=== PATIENT | female | born 1950 | race Caucasian/White ===

== ENCOUNTER 2016-12-01 09:19 | Day surgery (SDC) | payer MEDICARE, OTHER ==
[2016-12-01] MEDS ORDERED: PHENYLEPHRINE 2.5% OPHTH 2 ML DROPS ONE (09:28)
[2016-12-01] MEDS ORDERED: PHENYLEPHRINE 2.5% OPHTH 2 ML DROPS OPTH ONE (10:00)
[2016-12-01] MEDS ORDERED: CYCLOPENTOLATE 1% OPHTH DROPS 2 ML OPTH ONE (10:00)
[2016-12-01] MEDS ORDERED: PROPARACAINE 0.5% OPHTH DROPS 15 ML OPTH ONE ×2 (10:00→11:21)
[2016-12-01] MEDS ORDERED: KETOROLAC 0.45% OPHTH DROPS OPTH ONE (10:00)
[2016-12-01] MEDS ORDERED: LACTATED RINGERS 500 ML IV ONE (10:10)
[2016-12-01] MEDS ORDERED: MIDAZOLAM 2 MG/2 ML VIAL IVP ONE (11:25)
[2016-12-01] MEDS ORDERED: ONDANSETRON 4 MG/2 ML VIAL IVP ONE (11:25)
[2016-12-01] MEDS ORDERED: fentaNYL 100 MCG/2 ML VIAL IVP ONE (11:25)
[2016-12-01] MEDS ORDERED: BRIMONIDINE 0.2% OPHTH DROPS 5 ML OPTH ONE (11:41)
[2016-12-01] MEDS ORDERED: EPINEPHrine 1 MG/ML AMP IVP ONE (11:41)
[2016-12-01] MEDS ORDERED: CHONDR SULF/HYALURONATE SYRINGE IO ONE (11:42)
[2016-12-01] MEDS ORDERED: TRIAMCIN/MOXIFLOX/VANCO 1 ML VIAL IO ONE (11:42)
[2016-12-01] MEDS ORDERED: BSS/LIDOCAINE/EPINEPHRINE 1 ML SYRINGE IO ONE (11:42)
== END 2016-12-01 09:20 | disposition home or self-care (01) ==
PROC: 08RJ3JZ Replacement of Right Lens with Synthetic Substitute, Percutaneous Approach (ICD-10-PCS; principal; 2016-12-01 10:45)
DX: H25.11 Age-related nuclear cataract, right eye (principal); Z86.73 Personal history of transient ischemic attack (TIA), and cerebral infarction without residual deficits; F17.210 Nicotine dependence, cigarettes, uncomplicated
CPT/HCPCS: 66984; A9270; V2632; V2788

== ENCOUNTER 2017-01-05 10:35 | Day surgery (SDC) | payer MEDICARE, OTHER ==
[~2017-01-05 10:35] MED LIST: PHENYLEPHRINE 2.5% OPHTH 2 ML DROPS ONE
[2017-01-05] MEDS ORDERED: KETOROLAC 0.45% OPHTH DROPS OPTH ONE (11:00)
[2017-01-05] MEDS ORDERED: CYCLOPENTOLATE 1% OPHTH DROPS 2 ML OPTH ONE (11:00)
[2017-01-05] MEDS ORDERED: PROPARACAINE 0.5% OPHTH DROPS 15 ML OPTH ONE ×2 (11:00→11:58)
[2017-01-05] MEDS ORDERED: PHENYLEPHRINE 2.5% OPHTH 2 ML DROPS OPTH ONE (11:00)
[2017-01-05] MEDS ORDERED: LACTATED RINGERS 500 ML IV ONE (11:16)
[2017-01-05] MEDS ORDERED: TIMOLOL 0.5% OPHTH DROPS OPTH ONE (11:58)
[2017-01-05] MEDS ORDERED: CHONDR SULF/HYALURONATE SYRINGE IO ONE (11:58)
[2017-01-05] MEDS ORDERED: EPINEPHrine 1 MG/ML AMP IVP ONE (11:58)
[2017-01-05] MEDS ORDERED: BSS/LIDOCAINE/EPINEPHRINE 1 ML SYRINGE IO ONE ×2 (11:58)
[2017-01-05] MEDS ORDERED: BRIMONIDINE 0.2% OPHTH DROPS 5 ML OPTH ONE (11:58)
[2017-01-05] MEDS ORDERED: TRIAMCIN/MOXIFLOX/VANCO 1 ML VIAL IO ONE ×2 (11:58)
[2017-01-05] MEDS ORDERED: PROPOFOL 200 MG/20 ML VIAL IVP ONE (12:10)
[2017-01-05] MEDS ORDERED: LIDOCAINE-MPF 2% 5 ML VIAL IM ONE (12:10)
[2017-01-05] MEDS ORDERED: MIDAZOLAM 2 MG/2 ML VIAL IVP ONE (12:10)
[2017-01-05 12:51] VITALS: BP 110/68
--- NOTE | 2017-01-05 14:14 | OPERATIVE REPORT ---
DATE OF SURGERY: 01/05/2017 00:00:00 PREOPERATIVE DIAGNOSIS: Visually significant cataract, right eye. Cataract surgery was performed on t he left eye on 12/01/2016. POSTOPERATIVE DIAGNOSIS: Visually significant cataract, right eye. Cataract surgery was performed on the left eye on 12/01/2016. NAME OF PROCEDURE: Phacoemulsification posterior chamber intraocular lens implant, right eye and with laser assist. SURGEON: Gurpreet Mcginnis MD. ANESTHESIA: Monitored anesthesia care. COMPLICATIONS: None. OPERATIVE INDICATIONS: This is a 66-year-old woman with progressive vision loss in the right eye due to 2-3+ nuclear sclerotic cataract. Best corrected visual acuity was 20/30 with glare to 20/150 in th e right eye. INDICATIONS FOR SURGERY: Overall decrease in vision, difficulty seeing words on a computer screen, di fficulty reading, difficulty seeing words and closed captions on TV, difficulty seeing street signs, difficulty driving in low light or at night, difficulty driving at night because of head lights from other vehicles, and difficulty with glare or bright lights in any situation. She was consented at [facility] concerning the risks and benefits of cataract surgery, after which she expressed a desire to proc eed with surgery. OPERATIVE PROCEDURE: The patient was taken into OR #2 and placed under monitored anesthesia care. A s urgical time-out was conducted confirming the correct patient, correct procedure and correct surgical site. She was placed under the LenSx laser and her eye docked to the laser interface. The laser perf ormed the capsulotomy, lens softening, phaco wounds, and arcuate keratotomy incisions for residual st igmatism after toric lens. She was then moved to the operating microscope, given topical anesthesia, and then prepped and draped in the usual sterile fashion. The eye was entered at the 12 and 9 o'clock positions. Intracameral Shugarcaine was injected into the anterior chamber, followed by Viscoat. Cap sulorrhexis flap created by the LenSx laser was removed from the anterior chamber. The nucleus was hy drodissected and phacoemulsified. The cortex was evacuated using automated infusion aspiration. Provi sc was injected into the capsular bag and a 26.5 diopter intraocular lens was inserted into the bag. This is Symfony multifocal lens and also toric [id number]. Approximately 0.5 ml of a mixture of triamcino lone, moxifloxacin, and vancomycin was injected subconjunctivally in the superior for infection and i nflammation prophylaxis. The lens was rotated into the proper position, being 103 degrees using the t oric max on the lens and centering on the arcuate incisions that had already been placed. I/A was u sed to evacuate the viscoelastic materials. The second repositioning of the lens had to occur, so mor e Provisc was injected, lens aligned, and then additional I/A to remove the viscoelastic materials. T he eye was inflated to physiologic pressure using balanced salt solution and found to be watertight. The positioning of the lens was checked one more time and the surgery ended. The patient was taken fr om the operating room in good condition, given postoperative instructions. JOB #: [id number] EXT JOB #:[id number]
== END 2017-01-05 10:36 | disposition home or self-care (01) ==
LOC: SDS 10:35
PROVIDERS: ATTEND Ophthalmology
PROC: 08RJ3JZ Replacement of Right Lens with Synthetic Substitute, Percutaneous Approach (ICD-10-PCS; principal; 2017-01-05 12:00)
DX: H25.11 Age-related nuclear cataract, right eye (principal); F17.200 Nicotine dependence, unspecified, uncomplicated
CPT/HCPCS: 66984; A9270; V2632; V2788

== ENCOUNTER 2018-03-26 11:42 | Outpatient (CLI) | payer MEDICARE, OTHER ==
--- NOTE | 2018-04-05 08:52 | Mammography Report ---
Procedure Date: 03/26/2018 Accession Number: [id number] / [id number] Procedure: MGN - Screening Mammo Dig Bilat CPT Code: FULL RESULT: EXAM: Screening Mammo Dig Bilat DATE: 03/26/2018 12:20 PM CLINICAL HISTORY: Routine screening TECHNIQUE: Bilateral CC and MLO views were obtained. COMPARISON: 01/25/2016, 01/10/2015 and 12/14/2013 FINDINGS: There are scattered fibroglandular densities. There is no significant interval change. No suspicious masses, clustered microcalcifications, or regions of architectural distortion are identified. IMPRESSION: Negative examination RECOMMENDATION: Routine annual screening unless otherwise clinically indicated. BIRADS CATEGORY 1: Negative STANDARD QUALIFYING STATEMENTS: 1. This examination was reviewed with the aid of Computer-Aided Detection (CAD). 2. A negative or benign imaging report should not delay biopsy if clinically suspicious findings are present. Consider surgical consultation if warrented. More than 5% of cancers are not identified by imaging. 3. Dense breasts may obscure an underlying neoplasm.
== END 2018-03-26 11:43 | disposition home or self-care (01) ==
LOC: DI.N 11:42
PROVIDERS: ATTEND Obstetrics & Gynecology Obstetrics
DX: Z12.31 Encounter for screening mammogram for malignant neoplasm of breast (principal)
CPT/HCPCS: 77067

== ENCOUNTER 2018-03-26 11:43 | Outpatient (CLI) | payer MEDICARE, OTHER ==
--- NOTE | 2018-03-26 15:13 | XRAY Report ---
Procedure Date: 03/26/2018 Accession Number: [id number] / [id number] Procedure: XRN - Chest 2 View X-Ray CPT Code: 31152 FULL RESULT: EXAM: CHEST RADIOGRAPHY EXAM DATE: 03/26/2018 12:18 PM. CLINICAL HISTORY: SMOKER, WHEEZING. COMPARISON: None. TECHNIQUE: 2 views. FINDINGS: Lungs/Pleura: No focal opacities evident. No pleural effusion. No pneumothorax. Normal volumes. Mediastinum: Heart and mediastinal contours are unremarkable. Other: None. IMPRESSION: No acute intrathoracic plain film abnormality. RADIA
== END 2018-03-26 11:44 | disposition home or self-care (01) ==
LOC: DI.N 11:43
PROVIDERS: ATTEND Obstetrics & Gynecology Obstetrics
DX: F17.200 Nicotine dependence, unspecified, uncomplicated (principal); R06.2 Wheezing
CPT/HCPCS: 71046

== ENCOUNTER 2018-07-27 14:56 | Outpatient (CLI) | payer MEDICARE, OTHER ==
--- NOTE | 2018-07-30 19:02 | DEXA Report ---
Reason: POSTMENOPAUSAL Procedure Date: 07/27/2018 Accession Number: [id number] / [id number] Procedure: DEX - Dexa Spine and/or Hip CPT Code: FULL RESULT: EXAM: Dexa Spine and/or Hip DATE: 07/27/2018 4:08 PM CLINICAL HISTORY: POSTMENOPAUSAL TECHNIQUE: Dual energy x-ray absorptiometry (DXA) was performed on a [employer] System. Regions measured are the AP Spine, femoral neck, and if needed forearm. COMPARISON: None. In accordance with the International Society for Clinical Densitometry (ISCD) guidelines, data from previous exams may be reanalyzed using current recommendations and techniques. This is done to allow a more accurate basis for comparison with the current study. FINDINGS: The data for the lumbar spine is as follows: BMD (g/cm/cm) T-SCORE Z-SCORE REGION L1 0.932 -1.6 -0.3 L2 1.084 -1.0 0.4 L3 1.224 0.2 1.5 L4 1.218 0.1 1.5 TOTAL 1.126 -0.4 0.9 NOTE: All evaluable vertebrae are used for classification The data for the hip is as follows: BMD (g/cm/cm) T-SCORE Z-SCORE REGION Neck 0.796 -1.7 -0.3 TOTAL 0.887 -1.0 0.2 NOTE: The femoral neck or total proximal femur, whichever is lowest, is used for classification. IMPRESSION: THE WHO CLASSIFICATION BASED ON THE INTERNATIONAL REFERENCE STANDARD IS OSTEOPENIA. THE FRACTURE RISK IS INCREASED. RECOMMENDATION: Patients with diagnosis of osteoporosis or osteopenia should have regular bone mineral density assessment. For those eligible for Medicare, routine testing is allowed once every 2 years. Testing frequency can be increased for patients who have rapidly progressing disease or for those who are receiving medical therapy to restore bone mass. COMMENT: World Health Organization (WHO) definitions for osteoporosis and osteopenia: NORMAL BMD: T-score at -1.0 or higher, fracture risk is low OSTEOPENIA BMD: T-score between -1.0 and -2.5, fracture risk is increased. OSTEOPOROSIS BMD: T-score at -2.5 or lower, fracture risk is high. National Osteoporosis Foundation recommends: 1. Obtain adequate dietary calcium (at least 1200 mg per day) and vitamin D (400-800 international units per day). 2. Participate, as appropriate, in regular weightbearing and muscle-strengthening exercise. 3. Avoid tobacco use and reduce alcohol and caffeine intake. 4. For more detailed information see the website at www.NOF.org.
== END 2018-07-27 14:57 | disposition home or self-care (01) ==
LOC: DI 14:56
PROVIDERS: ATTEND Obstetrics & Gynecology Obstetrics
DX: Z13.820 Encounter for screening for osteoporosis (principal); M85.88 Other specified disorders of bone density and structure, other site; Z78.0 Asymptomatic menopausal state
CPT/HCPCS: 77080

== ENCOUNTER 2019-04-22 12:13 | Outpatient (CLI) | payer MEDICARE, OTHER ==
--- NOTE | 2019-04-23 11:18 | Mammography Report ---
Reason: ROUTINE MAMMOGRA Procedure Date: 04/22/2019 Accession Number: [id number] / [id number] Procedure: MGN - Screening Mammo Dig Bilat CPT Code: FULL RESULT: EXAM: Screening Mammo Dig Bilat DATE: 04/22/2019 12:41 PM CLINICAL HISTORY: Routine screening TECHNIQUE: (B) - Bilateral CC and MLO views were obtained. COMPARISON: 03/26/2018 PARENCHYMAL PATTERN: (A) - The breasts demonstrate scattered fibroglandular densities bilaterally. FINDINGS: No significant interval change. There are no suspicious masses, calcifications, or areas of distortion. IMPRESSION: Negative examination. BI-RADS category 1. RECOMMENDATION: (ANNUAL) - Recommend routine annual screening mammography. BI-RADS CATEGORY: (1) - Negative. STANDARD QUALIFYING STATEMENTS: 1. This examination was not reviewed with the aid of Computer-Aided Detection (CAD). 2. A negative or benign imaging report should not preclude biopsy if clinically suspicious findings are present. 3. Dense breasts may obscure an underlying neoplasm. 4. This examination was reviewed without the aid of 3D breast imaging (tomosynthesis).
== END 2019-04-22 12:14 | disposition home or self-care (01) ==
LOC: DI.N 12:13
DX: Z12.31 Encounter for screening mammogram for malignant neoplasm of breast (principal)
CPT/HCPCS: 77067

== ENCOUNTER 2020-10-21 12:48 | Outpatient (CLI) | payer MEDICARE, OTHER ==
--- NOTE | 2020-10-22 13:27 | Mammography Report ---
BILATERAL DIGITAL SCREENING MAMMOGRAM 3D/2D: 10/21/2020 CLINICAL: Routine screening. Comparison is made to exams dated: 04/22/2019 mammogram, [facility] 01/25/2016 mamm[facility], 01/10/2015 mammogram, and 12/14/2013 mammogram - /[facility]. Ther e are scattered fibroglandular elements in both breasts. No significant masses, calcifications, or other findings are seen in either breast. There has been no significant interval change. IMPRESSION: NEGATIVE There is no mammographic evidence of malignancy. A 1 year screening mammogram is recommended. This exam was interpreted at Station ID: [id number]. NOTE: For mammograms, a report in lay terms will be sent to the patient. Approximately 15% of breast malignancies will not be visualized mammographically. In the management of a palpable breast mass, a negative mammogram must not discourage biopsy of a clinically suspicious lesion. Electronically Signed By: Pierce Washington M.D. ddp/penrad:10/21/2020 13:51:40 ACR BI-RADS Category 1: Negative 3341F PARENCHYMAL PATTERN: (A) - The breast(s) demonstrate(s) scattered fibroglandular densities. BI-RADS CATEGORY: (1) - 1 RECOMMENDATION: (ANNUAL) - Recommend routine annual screening mammography. [id number] 1 year screening LATERALITY: (B)
== END 2020-10-21 12:49 | disposition home or self-care (01) ==
LOC: DI.N 12:48
DX: Z12.31 Encounter for screening mammogram for malignant neoplasm of breast (principal)

== ENCOUNTER 2021-05-03 13:18 | Outpatient (CLI) | payer MEDICARE, OTHER ==
--- NOTE | 2021-05-03 14:47 | CT Report ---
PROCEDURE: Low Dose Lung Cancer Screen INDICATIONS: smoker TECHNIQUE: Noncontrast low-dose images were acquired from the pulmonary apices to the posterior costophrenic ang les. Multiplanar MIP reformats were then acquired. For radiation dose reduction, the following was u sed: automated exposure control, adjustment of mA and/or kV according to patient size. COMPARISON: None. FINDINGS: Image quality: Excellent. Lungs and pleura: 3 mm subpleural pulmonary nodule, right middle lobe, image 163/4. 6 mm pleural-bas ed pulmonary nodule, right lower lobe, image 173/4. 3 mm subpleural pulmonary nodule, posterior right lower lobe, image 197/4. Mediastinum: Heart size is normal. No pericardial effusion. Moderately severe coronary artery calc ifications. No mediastinal adenopathy by size criteria. Thoracic aorta and central pulmonary arterie s are normal in size. Esophagus is normal in caliber. No hiatal hernia. Bones and chest wall: No suspicious bony lesions. No vertebral body compression fractures. No axil virginie or supraclavicular adenopathy by size criteria. Thyroid is grossly unremarkable. Abdomen: Visualized upper abdomen solid organs and bowel loops appear normal in the absence of contr ast. IMPRESSION: 1. LungRads Category 3: Probably benign findings-short term follow up suggested; includes nodules wit h a low likelihood of becoming a clinically significant cancer: 6 mm pleural-based pulmonary nodule, right lower lobe. Patient also has 2 smaller pulmonary nodules, measuring 3 mm each, in the right zara g. 2. 6 month follow-up low-dose noncontrast CT of the chest is recommended for further evaluation. 3. Clinically significant or potentially clinically significant findings (nonlung cancer): Coronary a rtery disease. CLINICAL RECOMMENDATION STATEMENTS: In patients <35 years with an ITN detected on CT, MRI, or extrathyroidal ultrasound, the Committee re commends further evaluation with dedicated thyroid ultrasound if the nodule is ?1 cm and has no suspi cious imaging features, and if the patient has normal life expectancy. In patients ?35 years with an ITN detected on CT, MRI, or extrathyroidal ultrasound, the Committee re commends further evaluation with dedicated thyroid ultrasound if the nodule is ?1.5 cm and has no tamera picious imaging features, and if the patient has normal life expectancy. (ACR, 2014) Reviewed by: Raimundo Sparks MD on 05/03/2021 2:45 PM PDT Approved by: Raimundo Sparks MD on 05/03/2021 2:45 PM PDT Station ID: [id number]
== END 2021-05-03 13:19 | disposition home or self-care (01) ==
LOC: DI 13:18
PROVIDERS: ATTEND Obstetrics & Gynecology Obstetrics
DX: Z12.2 Encounter for screening for malignant neoplasm of respiratory organs (principal); F17.210 Nicotine dependence, cigarettes, uncomplicated; R91.8 Other nonspecific abnormal finding of lung field

== ENCOUNTER 2021-09-09 13:43 | Outpatient (CLI) | payer MEDICARE, OTHER ==
[2021-09-09 14:26] LABS: ALBUMIN 4.6 g/dL (3.2-5.5); ALBUMIN/GLOBULIN RATIO 1.5 (1.0-2.2); BILIRUBIN,TOTAL 0.8 mg/dL (0.2-1.0); CALCIUM 9.8 mg/dL (8.5-10.3); CREATININE 0.8 mg/dL (0.4-1.0); POTASSIUM 4.3 mmol/L (3.5-5.0); TOTAL PROTEIN 7.7 g/dL (6.7-8.2)
[2021-09-09 20:09] LABS: ESTIMATED AVERAGE GLUCOSE 123 mg/dL (70-100); HEMOGLOBIN A1c% 5.9 % (4.27-6.07)
== END 2021-09-09 13:44 | disposition home or self-care (01) ==
LOC: LAB 13:43
PROVIDERS: ATTEND Obstetrics & Gynecology Obstetrics
DX: E78.5 Hyperlipidemia, unspecified (principal); R73.03 Prediabetes
CPT/HCPCS: 36415; 80053; 81599; 83036

== ENCOUNTER 2022-05-24 10:19 | Outpatient (CLI) | payer MEDICARE, OTHER ==
--- NOTE | 2022-05-25 09:08 | Mammography Report ---
BILATERAL DIGITAL SCREENING MAMMOGRAM 3D/2D: 05/24/2022 CLINICAL: Routine screening. Comparison is made to exams dated: 10/21/2020 mammogram, 04/22/2019 mammogram, 03/26/2018 mammogram - [facility], and 01/25/2016 mammogram - /[facility]. There are scattered areas of fibroglandular density in both breasts (category b / 25%-50% glandular t issue). No significant masses, calcifications, or other findings are seen in either breast. There has been no significant interval change. IMPRESSION: NEGATIVE There is no mammographic evidence of malignancy. A 1 year screening mammogram is recommended. Based on the Tyrer Cuzick model (a risk assessment model) the patients lifetime risk is 2.8% and her 10 year risk is 2.3%. According to the ACR, ACS, and NCCN guidelines, an annual breast MRI exam marlen g with mammogram is recommended if the patients lifetime risk is 20% or greater. This exam was interpreted at Station ID: [id number]. NOTE: For mammograms, a report in lay terms will be sent to the patient. Approximately 15% of breast malignancies will not be visualized mammographically. In the management of a palpable breast mass, a negative mammogram must not discourage biopsy of a clinically suspicious lesion. Electronically Signed By: Hudson polanco/richa:05/24/2022 17:13:50 ACR BI-RADS Category 1: Negative 3341F PARENCHYMAL PATTERN: (A) - The breast(s) demonstrate(s) scattered fibroglandular densities. BI-RADS CATEGORY: (1) - 1 RECOMMENDATION: (ANNUAL) - Recommend routine annual screening mammography. [id number] 1 year screening LATERALITY: (B)
== END 2022-05-24 10:20 | disposition home or self-care (01) ==
LOC: DI.N 10:19
PROVIDERS: ATTEND Obstetrics & Gynecology Obstetrics
DX: Z12.31 Encounter for screening mammogram for malignant neoplasm of breast (principal)

== ENCOUNTER 2022-05-31 07:31 | Outpatient (CLI) | payer MEDICARE, OTHER ==
--- NOTE | 2022-05-31 10:53 | MRI Report ---
PROCEDURE: BRAIN WO INDICATIONS: BALANCE PROBLEMS, MEMORY PROBLEM TECHNIQUE: Noncontrast axial T1 spin echo, axial T2 fast spin echo, sagittal and axial FLAIR, coronal T2 fast sp in echo, axial gradient echo, axial diffusion and ADC through the brain. COMPARISON: None. FINDINGS: Image quality: Excellent. The ventricular system and cortical sulci demonstrate atrophy, consistent for patient's stated age. There are areas of hyperintense T2/FLAIR signal in the periventricular and subcortical white matter. There is no acute intra or extra-axial fluid collection. No acute hemorrhage, mass lesion or midlin e shift. There is a focus of hypointense signal on gradient sequence within the left temporal pariet al lobe. There is no visualized associated signal abnormality on other sequences. Brainstem is unrema rkable. There are no areas of restricted diffusion. Globes are symmetrical. Sinuses demonstrate mil d to moderate pansinus disease. Minimal scattered mastoid air cell fluid. IMPRESSION: 1. No acute intracranial process. 2. Moderate atrophy and chronic microvascular ischemic changes.. 3. Focus of hypointensity on gradient sequence as described above. This could represent an area of c alcification which is not well seen on other sequences or perhaps cavernous angioma. No priors are av ailable for comparison. As clinically indicated, follow-up post contrast exam may be obtained. Reviewed by: Kimberly Negrete MD on 05/31/2022 10:51 AM PDT Approved by: Kimberly Negrete MD on 05/31/2022 10:51 AM PDT Station ID: [id number]
--- NOTE | 2022-05-31 15:24 | CT Report ---
PROCEDURE: Low Dose Lung Cancer Screen INDICATIONS: SMOKER TECHNIQUE: Noncontrast low-dose axial images were acquired from the pulmonary apices to the posterior costophren ic angles. Multiplanar MIP reformats were then reconstructed. For radiation dose reduction, the follo wing was used: automated exposure control, adjustment of mA and/or kV according to patient size. COMPARISON: 05/03/2021 FINDINGS: Image quality: Excellent. Lungs and pleura: Subpleural right middle lobe pulmonary nodule can measures 3 mm on image 4/181. Ri ght lower lobe pleural-based nodule again measures 6 mm on image 4/184. Additional subpleural 2 mm no dule has decreased in size in the posterior right lower lobe on image 4/197. No new nodules. Calcifie d left lower lobe granuloma on image 4/251 unchanged Mediastinum: Heart size is normal. Dense coronary artery vascular calcification No pericardial effus ion. No mediastinal adenopathy by size criteria. Thoracic aorta and central pulmonary arteries are normal in size. Esophagus is normal in caliber. No hiatal hernia. Bones and chest wall: No suspicious bony lesions. No vertebral body compression fractures. No axil virginie or supraclavicular adenopathy by size criteria. The thyroid is normal in size and there are no incidental findings. Abdomen: Visualized upper abdomen solid organs and bowel loops appear normal in the absence of contr ast. IMPRESSION: Stable benign-appearing pulmonary nodules Lung RADS category 2: Benign findings. Continue annual screening. Reviewed by: Aaron Driver MD on 05/31/2022 2:23 PM AKDT Approved by: Aaron Driver MD on 05/31/2022 2:23 PM AKDT Station ID: [id number]
== END 2022-05-31 07:32 | disposition home or self-care (01) ==
LOC: DI 07:31
PROVIDERS: ATTEND Obstetrics & Gynecology Obstetrics
DX: Z12.2 Encounter for screening for malignant neoplasm of respiratory organs (principal); R91.8 Other nonspecific abnormal finding of lung field; R42 Dizziness and giddiness; G31.9 Degenerative disease of nervous system, unspecified; I67.2 Cerebral atherosclerosis; R26.89 Other abnormalities of gait and mobility; R41.3 Other amnesia; F17.210 Nicotine dependence, cigarettes, uncomplicated

== ENCOUNTER 2023-06-01 15:20 | Outpatient (CLI) | payer MEDICARE, OTHER ==
--- NOTE | 2023-06-05 11:27 | Mammography Report ---
BILATERAL DIGITAL SCREENING MAMMOGRAM 3D/2D: 06/01/2023 CLINICAL: Routine screening. Comparison is made to exams dated: 05/24/2022 mammogram, 10/21/2020 mammogram, 04/22/2019 mammogram, mammogram - [facility], 01/25/2016 mammogram, and 01/10/2015 mammogram - [facility]. There are scattered areas of fibroglandular density in both breasts (category b / 25%-50% glandular t issue). There is a focal asymmetry in the right breast upper inner quadrant at anterior depth. No other significant masses, calcifications, or other findings are seen in either breast. IMPRESSION: INCOMPLETE: NEEDS ADDITIONAL IMAGING EVALUATION The focal asymmetry in the right breast is indeterminate. A diagnostic mammogram and ultrasound is r ecommended. Based on the Tyrer Cuzick model (a risk assessment model) the patients lifetime risk is 2.6% and her 10 year risk is 2.3%. According to the ACR, ACS, and NCCN guidelines, an annual breast MRI exam marlen g with mammogram is recommended if the patients lifetime risk is 20% or greater. This exam was interpreted at Station ID: [id number]. NOTE: For mammograms, a report in lay terms will be sent to the patient. Approximately 15% of breast malignancies will not be visualized mammographically. In the management of a palpable breast mass, a negative mammogram must not discourage biopsy of a clinically suspicious lesion. Electronically Signed By: Gabby Vaughn M.D. esb/:06/04/2023 17:58:30 ACR BI-RADS Category 0: Incomplete 3340F PARENCHYMAL PATTERN: (A) - The breast(s) demonstrate(s) scattered fibroglandular densities. BI-RADS CATEGORY: (0) - 0 Mammo and [place] [id number] Immediate follow-up LATERALITY: (B)
== END 2023-06-01 15:21 | disposition home or self-care (01) ==
LOC: DI.N 15:20
PROVIDERS: ATTEND Obstetrics & Gynecology Obstetrics
DX: Z12.31 Encounter for screening mammogram for malignant neoplasm of breast (principal); R92.8 Other abnormal and inconclusive findings on diagnostic imaging of breast; R92.323 Mammographic fibroglandular density, bilateral breasts

== ENCOUNTER 2023-06-13 10:51 | Outpatient (CLI) | payer MEDICARE, OTHER ==
--- NOTE | 2023-06-13 15:53 | Mammography Report ---
UNILATERAL RIGHT DIGITAL DIAGNOSTIC MAMMOGRAM 3D/2D: 06/13/2023 CLINICAL: Patient returns today to evaluate a focal asymmetry in the right breast. Comparison is made to exams dated: 06/01/2023 mammogram, 05/24/2022 mammogram, 10/21/2020 mammogram, 04/22/2019 mammogram, and 03/26/2018 mammogram - [facility]. There are scattered areas of fibroglandular density in the right breast (category b / 25%-50% glandul ar tissue). There is a stable focal asymmetry in the right breast central to the nipple anterior depth. This is seen in additional views. No other significant masses or calcifications are seen in the breast. IMPRESSION: INCOMPLETE: NEEDS ADDITIONAL IMAGING EVALUATION The stable focal asymmetry in the right breast is indeterminate. An ultrasound is recommended. US w ill be performed and dictated separately. Based on the Tyrer Cuzick model (a risk assessment model) the patients lifetime risk is 2.6% and her 10 year risk is 2.3%. According to the ACR, ACS, and NCCN guidelines, an annual breast MRI exam marlen g with mammogram is recommended if the patients lifetime risk is 20% or greater. This exam was interpreted at Station ID: [id number]. NOTE: For mammograms, a report in lay terms will be sent to the patient. Approximately 15% of breast malignancies will not be visualized mammographically. In the management of a palpable breast mass, a negative mammogram must not discourage biopsy of a clinically suspicious lesion. Electronically Signed By: Matt Cano M.D. acr/:06/13/2023 12:13:31 ACR BI-RADS Category 0: Incomplete 3340F PARENCHYMAL PATTERN: (A) - The breast(s) demonstrate(s) scattered fibroglandular densities. BI-RADS CATEGORY: (0) - 0 Ultrasound [id number] Immediate follow-up LATERALITY: (R)
--- NOTE | 2023-06-13 15:53 | Ultrasound Report ---
LIMITED ULTRASOUND OF RIGHT BREAST: 06/13/2023 CLINICAL: Patient returns today to evaluate a focal asymmetry in the right breast. Comparison is made to exams dated: 06/13/2023 mammogram, 06/01/2023 mammogram, 05/24/2022 mammogram, 10/21/2020 mammogram, 04/22/2019 mammogram, and 03/26/2018 mammogram - [facility]. Color flow ultrasound of the right breast 1 o'clock region was performed. Villa scale images of the r eal-time examination were reviewed. There is a benign 0.4 cm simple cyst in the right breast at 1 o'clock anterior depth 6 cm from the ni pple. IMPRESSION: BENIGN There is no sonographic evidence of malignancy. The 0.4 cm simple cyst in the right breast is consistent with a simple cyst and is benign. A 1 year screening mammogram is recommended. This exam was interpreted at Station ID: [id number]. Electronically Signed By: Matt Cano M.D. acr/:06/13/2023 12:15:15 Ultrasound BI-RADS: 2 Benign BI-RADS CATEGORY: (2) - 2 Mammogram [id number] 1 year screening LATERALITY: (B)
== END 2023-06-13 10:52 | disposition home or self-care (01) ==
LOC: DI 10:51
PROVIDERS: ATTEND Obstetrics & Gynecology Obstetrics
DX: R92.8 Other abnormal and inconclusive findings on diagnostic imaging of breast (principal); N60.01 Solitary cyst of right breast; R92.321 Mammographic fibroglandular density, right breast

== ENCOUNTER 2023-06-21 07:50 | Outpatient (CLI) | payer MEDICARE, OTHER ==
--- NOTE | 2023-06-21 10:45 | CT Report ---
PROCEDURE: Low Dose Lung Cancer Screen INDICATIONS: SMOKER TECHNIQUE: A CT scan of the chest was performed. Intravenous contrast media was not administered. Images were re corded and evaluated at appropriate window settings. Reformats: axial MIP of the chest, coronal and s agittal. For radiation dose reduction, the following was used: automated exposure control, adjustment of mA and/or kV according to patient size. COMPARISON: 05/31/2022 FINDINGS: Image quality: Excellent. Prior cancer history: None Lungs and pleura: No pleural effusions. No pneumothorax. Pulmonary nodules are as follows (all descr ibed on series 3): 1. Unchanged 3 mm pleural-based pulmonary nodule, right middle lobe, image 171. 2. Unchanged 6 mm pleural-based pulmonary nodule, right lower lobe, image 170. 3. Unchanged 2 mm subpleural pulmonary nodule, right lower lobe, image 184. 4. Calcified granuloma, left lower lobe, image 241. Mediastinum: Heart size is normal. No pericardial effusion. Moderate to severe coronary artery calcif ications. No large vessel abnormality. No mediastinal adenopathy by size criteria. Chest wall and lower neck: Thyroid is unremarkable. No axillary or supraclavicular adenopathy by size . Bones: No aggressive osseous abnormality. Upper Abdomen: Unremarkable. IMPRESSION: Unchanged pulmonary nodules. No new or increasing pulmonary nodules. Lung RAD: 1 - Negative. Recommendation: Continue annual screening in 12 Months with LDCT Non-Lung Significant Findings: Coronary Arterial Calcification - Moderate or Severe. Reviewed by: Raimundo Sparks MD on 06/21/2023 10:44 AM [facility] Approved by: Raimundo Sparks MD on 06/21/2023 10:44 AM PST Station ID: [id number]
== END 2023-06-21 07:51 | disposition home or self-care (01) ==
LOC: DI 07:50
PROVIDERS: ATTEND Obstetrics & Gynecology Obstetrics
DX: Z12.2 Encounter for screening for malignant neoplasm of respiratory organs (principal); F17.210 Nicotine dependence, cigarettes, uncomplicated; R91.8 Other nonspecific abnormal finding of lung field; J84.10 Pulmonary fibrosis, unspecified

== ENCOUNTER 2024-01-12 17:27 | Emergency (ER) | payer MEDICARE, OTHER ==
--- NOTE | 2024-01-12 19:56 | ED Physician Documentation ---
PD HPI UPPER EXT INJURY - Stated complaint Stated Complaint: L SHOULDER PX - Chief complaint Chief Complaint: Ext Problem - History obtained from History obtained from: Patient - Additonal information Additional information: Little over a week ago while gardening she was lifting something up and felt of pop, actually 2 pops in the left shoulder and has posterior shoulder pain since then. She went to her masseuse who told her that she feels the "joint is destabilized." There is no fall or major injury. PD PAST MEDICAL HISTORY - Past Medical History Cardiovascular: High cholesterol Respiratory: None Endocrine/Autoimmune: None GI: None : None HEENT: Chronic vision loss, Chronic hearing loss Psych: Depression, Panic attacks Musculoskeletal: Osteoarthritis Derm: None - Past Surgical History Past Surgical History: Yes General: Colonoscopy Ortho: Hip replacement /[employer]: Hysterectomy HEENT: Tonsil/Adenoidectomy - Present Medications Home Medications: Ambulatory Orders Medication Instructions Recorded Confirmed Atorvastatin [Lipitor] 40 mg PO DAILY 11/30/16 01/05/17 Calcium Carbonate [Calcium] 600 mg PO DAILY 11/30/16 01/05/17 Cholecalciferol (Vitamin D3) 1,000 unit PO DAILY 11/30/16 01/05/17 [Vitamin D3] Ginseng 100 mg PO DAILY 11/30/16 01/05/17 Magnesium 250 mg PO DAILY 11/30/16 01/05/17 Tizanidine HCl 4 mg PO TID PRN #15 tablet 01/12/24 - Allergies Allergies/Adverse Reactions: Allergies Allergy/AdvReac Type Severity Reaction Status Date / Time acetaminophen [From Percocet] AdvReac Nausea Verified 01/12/24 17:43 oxycodone HCl * AdvReac Nausea Verified 01/12/24 17:43 [From Percocet] - Social History Does the pt smoke?: Yes Smoking Status: Current every day smoker Does the pt drink ETOH?: No Does the pt have substance abuse?: No PD ED PE NORMAL - Vitals Vital signs reviewed: Yes - General General: Alert and oriented X 3, No acute distress - Extremities Extremities: Other (She has no tenderness over the upper humerus on the left, the clavicle, nor the glenohumeral joint. She has mild muscular tenderness posteriorly along the shoulder. She is able to abduct over her head. Negative supraspinatus testing, and she has excellent strength S PAIN W INT/EXT ROTATION) - Neuro Neuro: Alert and oriented X 3, Normal speech - Psych Psych: Normal mood, Normal affect Results - Vitals Vitals: Vital Signs - 24 hr 01/12/24 01/12/24 17:35 20:53 Temperature 36.5 C Heart Rate 75 76 Respiratory 17 16 Rate Blood Pressure 129/72 99/64 O2 Saturation 96 94 Oxygen O2 Source Room air - Rads (name of study) 4 view x-ray of the left shoulder was unremarkable. Relevant Findings:: Final report received, EMP independent interpretation of test PD Medical Decision Making - ED course ED course: Clinically this just seems like muscle strain. Her masseuse told her that her shoulder joint was "unstable." That said her pain really is not even over her joint it is more posterior. Clinically no evidence of rotator cuff pathology either. She has excellent range of motion despite the complaint. Departure - Departure Disposition: 01 Home, Self Care Clinical Impression: Left shoulder pain Condition: Good Record reviewed to determine appropriate education?: Yes Instructions: ED Strain Muscle Ext Prescriptions: Tizanidine HCl 4 mg PO TID PRN #15 tablet PRN Reason: Spasms Comments: The x-ray of your shoulder looks fine, you should follow-up with your doctor for consideration for referral for physical therapy. Return for new or worsening symptoms. Tylenol as needed for pain and gentle stretching is okay as well. I sent your prescription electronically to the [facility] in [place]. Do not drink or drive while taking prescription muscle relaxers. Forms: PCP List Discharge Date/Time: 01/12/24 21:08
[2024-01-12] MEDS: tiZANidine 4 MG TABLET PO STA (20:05)
[2024-01-12 20:59] VITALS: BP 99/64; O2SAT 94
--- NOTE | 2024-01-12 21:50 | XRAY Report ---
PROCEDURE: Shoulder 2+V LT INDICATIONS: Left shoulder injury TECHNIQUE: 4 views of the shoulder were acquired. COMPARISON: CT chest dated 06/21/2023. FINDINGS: Bones: No fractures or dislocations. No suspicious bony lesions. Visualized ribs appear intact. Soft tissues: No suspicious soft tissue calcifications. The visualized lungs are within normal limi ts. IMPRESSION: No acute bony abnormality. Reviewed by: Dylan Myers MD on 01/12/2024 9:49 PM PDT Approved by: Dylan Myers MD on 01/12/2024 9:49 PM PDT Station ID: [id number]
== END 2024-01-12 21:08 | disposition home or self-care (01) ==
LOC: ED 17:27
DX: M25.512 Pain in left shoulder (principal); X50.0XXA Overexertion from strenuous movement or load, initial encounter; Y93.89 Activity, other specified; F17.200 Nicotine dependence, unspecified, uncomplicated
CPT/HCPCS: 73030; 99283; 99284; A9270

== ENCOUNTER 2024-03-12 08:29 | Outpatient (CLI) | payer MEDICARE, OTHER ==
--- NOTE | 2024-03-12 13:24 | MRI Report ---
PROCEDURE: Shoulder LT WO INDICATIONS: L SHOULDER PAIN TECHNIQUE: Noncontrast oblique coronal T2 fast spin echo with fat saturation, oblique sagittal T1 spin echo and T2 fast spin echo with fat saturation, axial T1 spin echo and T2 fast spin echo with fat saturation t hrough the shoulder. COMPARISON: Left shoulder radiograph dated 01/11/2024. FINDINGS: Image quality: Excellent. Rotator cuff: Low to moderate grade bursal surface partial-thickness tear involving distal supraspina tus at its insertion on humeral head is seen extending to musculotendinous junction. Low-grade articu lar surface partial-thickness involving distal supraspinatus and infraspinatus at their insertions on humeral head is also seen. Distal subscapularis tendinosis is noted. No full-thickness rotator cuff tendon rupture. Mild supraspinatus muscle atrophy is seen on sagittal images. Bones and bursae: No bone marrow contusions or fractures. Mild to moderate acromioclavicular joint o steoarthritic changes are seen with joint space narrowing at downward osteophyte formation depressing on musculotendinous junction of supraspinatus. Slight superior migration of humeral head in relation to glenoid is seen. Mild to moderate glenohumeral joint osteoarthritic changes also noted. Type I ac romium, without an os acromiale. Small to moderate amount of joint effusion and subacromial subdeltoi d bursal fluid is seen, no loose bodies. Capsule and soft tissues: The labrum is grossly intact. The glenohumeral ligaments are grossly intact . The long head of the biceps tendon demonstrates normal location and morphology. The rotator interv al appears normal, without fibrosis. The coracohumeral ligament is normal in thickness. IMPRESSION: 1. Low to moderate grade bursal surface partial-thickness tear involving distal supraspinatus extendi ng to musculotendinous junction. Low-grade articular surface partial-thickness tear involving distal supraspinatus and infraspinatus. Distal subscapularis tendinosis. No full-thickness rotator cuff tend on rupture. Mild supraspinatus muscle atrophy. 2. Mild to moderate acromioclavicular and glenohumeral joint osteoarthritis. No fracture or dislocati on. Small to moderate joint effusion and subacromial subdeltoid bursal fluid, no loose bodies. 3. No gross focal labral tear. Reviewed by: Dylan Cottrell MD on 03/12/2024 1:22 PM PDT Approved by: Dylan Cottrell MD on 03/12/2024 1:22 PM PDT Station ID: [id number]
== END 2024-03-12 08:30 | disposition home or self-care (01) ==
LOC: DI 08:29
PROVIDERS: ATTEND Obstetrics & Gynecology Obstetrics
DX: M75.112 Incomplete rotator cuff tear or rupture of left shoulder, not specified as traumatic (principal); M19.012 Primary osteoarthritis, left shoulder